=== PATIENT | male | born 1995 | race Two or more races ===

== ENCOUNTER 2018-01-24 18:21 | Emergency (ER) | payer BC, OTHER ==
[2018-01-24] MEDS ORDERED: AMOXICILLIN TR/POT CLAVULANATE 500-125 MG TAB PO ONE (20:03)
--- NOTE | 2018-01-24 20:05 | ER Document Report ---
ED Animal Bite - General Chief Complaint: Dog Bite Stated Complaint: POSSIBLE DOG BITE Time Seen by Provider: 01/24/18 19:18 Mode of Arrival: Ambulatory Information source: Patient TRAVEL OUTSIDE OF THE [place] IN LAST 30 DAYS: No - HPI Patient complains to provider of: dog bite Location of injury: RUE Severity of injury: Bitten Onset: Just prior to arrival Type of animal: Dog Notes: Patient is here with complaints of dog bite to the right forearm. It was his dog. He states that his dog was playing with another dog that was biting his dog's ear, he went to break up the fight and his dog bit his forearm twice. His dog's shots are all up-to-date. Patient states that his tetanus is up-to- date. He denies any numbness, tingling, weakness. He complains of pain in the forearm. Bleeding is controlled. He denies any fever. No redness. No nausea , vomiting, diarrhea. No chest pain or shortness of breath. No other injury, no other complaints. Pain is worse with movement of the fingers, hand as well as touching the area. - Related Data Allergies/Adverse Reactions: No Known Allergies Allergy (Unverified 01/24/18 18:26) Past Medical History - Social History Smoking Status: Current Some Day Smoker Chew tobacco use (# tins/day): No Frequency of alcohol use: Occasional Drug Abuse: None Family History: Reviewed & Not Pertinent Patient has suicidal ideation: No Patient has homicidal ideation: No Renal/ Medical History: Denies: Hx Peritoneal Dialysis Review of Systems - Review of Systems -: Yes All other systems reviewed and negative Physical Exam - Vital signs Vitals: Temp Pulse Resp BP Pulse Ox 98.3 F 85 18 129/64 H 99 01/24/18 18:58 01/24/18 18:58 01/24/18 18:58 01/24/18 18:58 01/24/18 18:58 - Notes Notes: GENERAL: alert, cooperative, nontoxic, no distress. HEAD: normocephalic, atraumatic EYES: conjunctiva pink without discharge, no external redness or swelling. EARS: no external swelling, no external redness NOSE: atraumatic, no external swelling MOUTH/THROAT: mucous membranes moist and pink NECK: soft, supple, full range of motion, no meningismus. CHEST: no distress, lungs clear and equal throughout. No wheezing, rales, rhonchi. CARDIAC: regular rate and rhythm, no murmur, normal capillary refill, normal pulses. BACK: full range of motion, no CVA tenderness. EXTREMITIES: full range of motion of all extremities. No redness. Several puncture wounds to the right forearm, with red abrasions as well. Mild swelling noted. Compartments are soft. Full range of motion of the wrist, hand , fingers. Normal pulse and sensation distally. No bleeding. No redness or drainage. NEURO: alert and oriented 3, no focal deficits, full range of motion of all extremities. PYSCH: appropriate mood, affect. Patient is cooperative. SKIN: pink, warm, dry, no rash. Course - Re-evaluation Re-evalutation: 01/24/18 21:09 Patient is nontoxic-appearing with stable vitals. Is here with complaints of right arm pain after being bit by his family dog on the right forearm. He has some superficial punctures. No redness or drainage. X-rays negative for acute fracture or foreign body. Patient's tetanus is up-to-date. Dog's immunizations are up-to-date. No rabies immunoglobulin needed at this time. Patient will be discharged home with prescription for Naprosyn and Augmentin. Follow-up for redness, drainage, increased pain, fever, swelling, numbness, tingling, weakness, or for any further concerns. Patient has no signs of compartment syndrome at this time. The patient is noted to have elevated blood pressure during today's emergency department visit. The patient was informed of this finding. The patient was instructed that this may be related to pre-hypertension and requires further evaluation with a primary care provider. The patient has no hypertensive symptoms at this time. The patient's emergency department workup and current diagnosis were explained to the patient and or family. Follow-up instructions were provided. Medications if prescribed were discussed. Instructions for when to return to the emergency department including specific worrisome symptoms were discussed with the patient and/or family. - Vital Signs Vital signs: Temp Pulse Resp BP Pulse Ox 98.3 F 85 18 129/64 H 99 01/24/18 18:58 01/24/18 18:58 01/24/18 18:58 01/24/18 18:58 01/24/18 18:58 - Diagnostic Test Radiology reviewed: Image reviewed, Reports reviewed - X-ray of the left forearm negative Discharge - Discharge Clinical Impression: Dog bite Qualifiers: Encounter type: initial encounter Qualified Code(s): W54.0XXA - Bitten by dog, initial encounter Condition: Stable Disposition: HOME, SELF-CARE Instructions: Animal Bites ([facility]) Additional Instructions: Take medications as prescribed. Keep wound clean and dry. Rest, ice, elevate. Follow-up for increased pain, fever, redness, drainage, numbness, tingling, weakness, any further concerns. Your blood pressure was elevated during today's visit. Have this rechecked with your doctor. Prescriptions: Amox Tr/Potassium Clavulanate [Augmentin 875-125 Tablet] 1 tab PO BID 10 Days tablet Naproxen [Naprosyn] 500 mg PO BID #20 tablet Forms: Elevated Blood Pressure, Smoking Cessation Education Referrals: ASHELY PAREDES MD [Primary Care Provider] - Follow up as needed
[2018-01-24] MEDS ORDERED: IBUPROFEN 600 MG TABLET PO ONE (20:14)
--- NOTE | 2018-01-24 20:31 | RADIOLOGY REPORT (SQ) ---
EXAM DESCRIPTION: FOREARM RIGHT COMPLETED DATE/TIME: 01/24/2018 8:12 pm REASON FOR STUDY: dog bite COMPARISON: None. NUMBER OF VIEWS: Two views right radius and ulna. LIMITATIONS: None. FINDINGS: Extensive gas in the distal forearm soft tissues with mild overlying soft tissue swelling. No radiopaque foreign body. No fracture. OTHER: No other significant finding. IMPRESSION: Soft tissue injury with gas and swelling. No fracture or radiopaque foreign body dennis garcia TECHNICAL DOCUMENTATION: JOB ID: [id number] Reading location - IP/workstation name: [email or web address]
[2018-01-24 21:20] VITALS: BP 127/99
== END 2018-01-24 21:19 | disposition home or self-care (01) ==
LOC: ER 18:21
DX: S51.851A Open bite of right forearm, initial encounter (principal); W54.0XXA Bitten by dog, initial encounter; Y93.K9 Activity, other involving animal care; F17.200 Nicotine dependence, unspecified, uncomplicated; R03.0 Elevated blood-pressure reading, without diagnosis of hypertension
CPT/HCPCS: 99283